=== PATIENT | male | born 1990 | race Caucasian/White ===

== ENCOUNTER 2025-05-17 06:29 | Day surgery (SDC) | payer BC ==
[~2025-05-17] VITALS: Ht 175.3 cm; Wt 110.0 kg
[~2025-05-17 06:29] MED LIST: MIDAZOLAM HCL 5 MG/5 ML VIAL IV PRN; fentaNYL citrate 100 MCG/2 ML VIAL IV PRN
[2025-05-17 06:58] VITALS: BP 126/69
[2025-05-17] MEDS ORDERED: IBLOOD GLUCOSE TEST STRIP 1 EA TEST VI PRN (07:00)
[2025-05-17] MEDS ORDERED: LACTATED RINGER'S 1,000 ML IV SCH (07:00)
[2025-05-17] MEDS ORDERED: LIDOCAINE HCL 1% 5 ML SDV INJ ONE (07:00)
[2025-05-17] MEDS ORDERED: MIDAZOLAM HCL 5 MG/5 ML VIAL ONE (07:05)
[2025-05-17] MEDS ORDERED: fentaNYL citrate 100 MCG/2 ML VIAL ONE (07:06)
--- NOTE | 2025-05-17 08:23 | NUR ---
05/17/25 0823 Brunilda Pace 0816- PT PRESENTS TO PACU, LEFT LATERAL POSITION, AWAKE OFF AND ON, BUT DROWSY. DENIES PAIN OR NAUSEA, ENCOURAGED TO PASS GAS. BREATHING EVEN AND NON LABORED ON 2L O2 PER NC. LR INFUSING TO RFA IV. ABD SOFT, NON DISTENDED. ALL MONITORS IN PLACE 0821- PT WAKES ON OWN OFF AND ON, NO SIGNS OF DISTRESS. ASKING QUESTIONS. MOVED TO ROOM AIR AT THIS TIME.
[2025-05-17 08:46] VITALS: BP 122/87
--- NOTE | 2025-05-18 07:59 | OR ---
[facility] [address], [place] [address] Signed DATE OF OPERATION: 05/17/2025 SURGEON: Tevin Pastor MD PREOPERATIVE DIAGNOSIS: Episodic rectal bleeding, presumptively hemorrhoids. POSTOPERATIVE DIAGNOSES: 1. Pedunculated polyp of distal sigmoid, friable, hypervascular. 2. Sigmoid diverticulosis. 3. Minimal internal hemorrhoidal change. PROCEDURE: Total colonoscopy to cecum with hot snare polypectomy x1. ANESTHESIA: Intravenous sedation fentanyl 100 mcg and Versed 10 mg. INDICATION: This 35-year-old white man is a patient of [facility] in [place], [place]. He has had episodic rectal bleeding. I saw him a few years ago in 2020 where he underwent an ostomy showing some internal hemorrhoids but no sign of fissure or other abnormality. More recently he had what sound like an external hemorrhoid with thrombosis which ultimately resolved with conservative measures. He has no family history of colon cancer. My recent evaluation showed him to have no sign of bleeding or other anorectal problem. Given his episodic rectal bleeding, I have recommended colonoscopy to assure there is no more sinister abnormality more proximally. Of note, following our visit on April 29, he did have some rectal bleeding which has ceased entirely. He is admitted at this time to undergo colonoscopy. He understands the risk of bleeding, infection, and perforation. FINDINGS: The prep was excellent. Complete colonoscopy was undertaken to cecum. He had diverticulosis of the sigmoid. There was a pedunculated somewhat hypervascular at least 1 cm polyp of the distal sigmoid, which was excised with hot snare technique. Retroflexed view showed a rather minimal internal hemorrhoidal change. It is uncertain whether his rectal bleeding has been from the polyp or hemorrhoids in fact. DESCRIPTION OF PROCEDURE: The patient was brought to the endoscopy suite and placed in lateral decubitus position, Electronically Signed By: TEVIN PASTOR MD 05/18/25 0759 PATIENT NAME: MINGO PETTY OPERATIVE REPORT DATE OF : [birth year] REPORT #: [id number] PHYSICIAN: TEVIN PASTOR MD PCP: NO PRIMARY CARE PHYSICIAN REPORT IS CONFIDENTIAL AND NOT TO BE RELEASED WITHOUT AUTHORIZATION [facility] [address], [place] [address] Signed given intravenous sedation to the point of slurred speech and nystagmus. Digital rectal examination was normal. An Olympus video colonoscope was passed in the rectum and manipulated throughout the colon noting a somewhat hypervascular and friable polyp at the rectosigmoid area. Scope was passed beyond this ultimately to the cecum. The ileocecal valve and appendiceal orifice were normal. The scope was then withdrawn and careful inspection showed no sign of abnormality other than diverticula of the sigmoid and left colon. The previously identified polyp was once again seen in the distal sigmoid/proximal rectum. Using hot snare polypectomy technique, the lesion was excised completely. The specimen was grasped and withdrawn and passed for permanent pathology. It measured about a cm. Reintroduction of the scope allowed for evaluation of the rectum with retroflexion showing only mild hemorrhoidal change at this time and certainly no sign of bleeding or scar. Scope was removed. The patient was taken to the recovery room in good condition. CONCLUDING DIAGNOSIS: Episodic rectal bleeding possibly related to internal hemorrhoids but also possibly related to a somewhat hypervascular pedunculated polyp of the distal sigmoid. Diverticulosis was noted. PLAN: Recommend high-fiber diet. Would recommend repeat colonoscopy in 5 years. If he has recurrent bleeding, I will see him in the office for hemorrhoidal banding. If there is no further bleeding, no hemorrhoidal banding would be indicated. MD JV Crawford/MODL /[id number] cc: CHARI Wells [place] Electronically Signed By: TEVIN PASTOR MD 05/18/25 0759 PATIENT NAME: MINGO PETTY OPERATIVE REPORT DATE OF : [birth year] REPORT #: [id number] PHYSICIAN: TEVIN PASTOR MD PCP: NO PRIMARY CARE PHYSICIAN REPORT IS CONFIDENTIAL AND NOT TO BE RELEASED WITHOUT AUTHORIZATION [facility] [address] [facility] [place] [address] Signed Copies: ~ Electronically Signed By: TEVIN PASTOR MD 05/18/25 0759 PATIENT NAME: MINGO PETTY OPERATIVE REPORT DATE OF : [birth year] REPORT #: [id number] PHYSICIAN: TEVIN PASTOR MD PCP: NO PRIMARY CARE PHYSICIAN REPORT IS CONFIDENTIAL AND NOT TO BE RELEASED WITHOUT AUTHORIZATION
== END 2025-05-17 09:00 | disposition home or self-care (01) ==
LOC: OPS 06:29 → DS 06:29 → OPS 07:30
PROVIDERS: ATTEND Surgery
PROC: 0DBN8ZX Excision of Sigmoid Colon, Via Natural or Artificial Opening Endoscopic, Diagnostic (ICD-10-PCS; principal; 2025-05-17 07:30)
DX: D12.5 Benign neoplasm of sigmoid colon (principal); K64.8 Other hemorrhoids; K57.30 Diverticulosis of large intestine without perforation or abscess without bleeding; Z91.010 Allergy to peanuts
CPT/HCPCS: 99153; G0500; J2250; J3010; J7121